=== PATIENT | female | born 1960 | race Caucasian/White ===

== ENCOUNTER 2017-01-18 08:10 | Day surgery (SDC) | payer OTHER ==
[~2017-01-18 08:10] MED LIST: BIOTIN; CALCIUM 600 +1 EA14 PO; COLACE100 M1 PO; CRANBERRY400 M2 PO; CYCLOBENZAPRINE10 M1 PO; KRILL OIL 5001 EAC1 PO; LOW DOSE ASPIRI81 M3 PO; TYLENOL EXTRA500 M1 PO; TYLENOL325 M2 PO; ULTRAM50 M1 PO; ZINC GLUCONATE PO; [UNRECOGNIZED DRUG - CODE] PO
== END 2017-01-18 15:00 ==
LOC: SRG 08:10 → SHSC 08:11 → ORE 09:51 → PACU 10:59 → SHSC 12:10
PROC: 0HPT0JZ Removal of Synthetic Substitute from Right Breast, Open Approach (ICD-10-PCS; principal; 2017-01-18)
DX: T85.44XA Capsular contracture of breast implant, initial encounter (principal); Z79.82 Long term (current) use of aspirin; Z79.899 Other long term (current) drug therapy; Z88.5 Allergy status to narcotic agent; Z88.8 Allergy status to other drugs, medicaments and biological substances; Z85.3 Personal history of malignant neoplasm of breast; Z87.01 Personal history of pneumonia (recurrent); Z87.440 Personal history of urinary (tract) infections; Z90.11 Acquired absence of right breast and nipple; Z90.89 Acquired absence of other organs; Z98.51 Tubal ligation status; Z98.890 Other specified postprocedural states; X58.XXXA Exposure to other specified factors, initial encounter
CPT/HCPCS: J0131; J0690; J1170; J2250; J3010; J7030